=== PATIENT | female | born 1975 | race Caucasian/White ===

== ENCOUNTER 2022-09-22 17:34 | Emergency (ER) | payer MEDICAID ==
[~2022-09-22] VITALS: Ht 160 cm; Wt 55.0 kg
[2022-09-22 18:26] LABS: BASOPHILS % 0.8 % (0.0-2.0); EOSINOPHILS % 4.7 % (0.0-5.0); HEMOGLOBIN. 14.1 g/dL (12.0-16.0); LYMPHOCYTES % 14.6 % (20.0-50.0); MEAN CORPUSCULAR HEMOGLOBIN 30.1 pg (28.0-32.0); MEAN CORPUSCULAR VOLUME 87.8 fL (81.0-99.0); NEUTROPHILS % 74.9 % (40.0-76.0); PLATELET 133 x1000/uL (130-400); RED BLOOD CELL COUNT 4.67 mill/uL (4.2-5.4); RED CELL DISTRIBUTION WIDTH 19.6 % (11.6-14.6)
[2022-09-22 18:34] LABS: CHLORIDE 93 mEq/L (98-107)
[2022-09-22] MEDS ORDERED: SODIUM CHLORIDE 0.9% 250 ML IV ONE (18:45)
[2022-09-22] MEDS ORDERED: ACETAMINOPHEN 325MG TABLET PO ONE (18:45)
[2022-09-22 20:30] VITALS: BP 143/80
== END 2022-09-22 20:54 | disposition home or self-care (01) ==
LOC: ER 17:34
DX: E87.1 Hypo-osmolality and hyponatremia (principal); I12.0 Hypertensive chronic kidney disease with stage 5 chronic kidney disease or end stage renal disease; N18.6 End stage renal disease; R42 Dizziness and giddiness; Z99.2 Dependence on renal dialysis
CPT/HCPCS: 36415; 80053; 85025; 93005; 96360; 99283; J7050